=== PATIENT | female | born 1990 | race Caucasian/White ===

== ENCOUNTER 2017-04-05 07:45 | Emergency (ER) | payer OTHER ==
[~2017-04-05] VITALS: Ht 167.6 cm; Wt 57.1 kg
[~2017-04-05 07:45] MED LIST: BCTROWC TOP; BIOT1CHW PO; CEPH500C2 PO; CLZ750 PO; DIPH25CA65 PO; EPP3/2 IM; FLAXOIL2 PO; TRIA0.1C20 TOP; TRIA0.1O12 TOP
[2017-04-05 07:46] VITALS: TEMP 37.1; Ht 167.6 cm; Wt 57.1 kg
[2017-04-05] MEDS ORDERED: METO25TA3 PO (08:12)
[2017-04-05] MEDS ORDERED: TRIA0.5O (08:12)
[2017-04-05] MEDS ORDERED: ADAL40KI IM (08:12)
--- NOTE | 2017-04-05 08:25 | EMERGENCY ROOM VISIT NOTE ---
History First contact with patient: 07:55 Chief Complaint: CHEST PAIN Stated Complaint: CHEST PAIN History of Present Illness The patient is a 26 year old female who presents to the Emergency Room with complaints of epigastric and left-sided chest discomfort which began approximately 540 this morning. The patient states she awoke, and shortly after began noticing the chest pain. She states she is not doing anything specific, but getting ready for her diarrhea. When the pain began, she was making pancakes for breakfast. She describes the pain as constant, and states intermittently, she experiences sharpness. She does not report any significant pressure. 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 She describes the pain as bilateral over the lower rib cage, and states it seemed to radiate to the left side. She denies recent illness, nausea, vomiting, diarrhea, or constipation. She does have a history of palpitations, and takes Toprol for frequent PVCs. She did not note palpitations while experiencing the chest discomfort. She states this pain is different than any fluttering or palpitations she experienced when diagnosed with the frequent PVCs. The patient does not report any significant family history of cardiac events or disorders. The patient denies any personal history of cardiac events with the exception of frequent PVCs. Review of Systems A complete 10 point review of systems was reviewed with the patient with pertinent positives and negatives as per history of present illness. All else were negative. Past Medical/Surgical History Frequent PVCs Social History Smoking Status: Never Smoker Smokeless Tobacco Use: No Alcohol Use: occasionally Drug Use: none Marital Status: single Housing Status: lives with family Occupation Status: employed Current/Historical Medications Scheduled Adalimumab (Humira Pen), 40 MG IM every 2 weeks Control Pills ( Control Pills), 1 TAB PO DAILY Epinephrine (Epipen), 0.3 MG IM UD Flaxseed (Linseed) (Flax Oil), 1 CAP PO TID Metoprolol Succ (Toprol Xl) (Toprol-Xl), 25 MG PO DAILY Scheduled PRN Betamethasone Dip Aug 0.05% (Diprolene 0.05%), 1 DOSE PO DAILY PRN for PRN Miscellaneous Medications Triamcinolone Acetonide (Topic (Triamcinolone Acetonide) Physical Exam Vital Signs Date Time Temp Pulse Resp B/P (MAP) Pulse Ox O2 Delivery O2 Flow Rate FiO2 2/9/18 10:07 82 19 109/64 100 04/05/17 09:24 98 Room Air 04/05/17 09:24 98 Room Air 04/05/17 08:11 92 04/05/17 07:46 37.1 99 17 124/85 100 Room Air Physical Exam VITALS: Vitals are noted on the nurse's note and reviewed by myself. Vital signs stable. GENERAL: This is a 26-year-old white female, in no acute distress, nondiaphoretic, well-developed well-nourished. SKIN: The skin was without rashes, erythema, edema, or bruising. There is no tenting of the skin. Capillary reflex less than 2 seconds. HEAD: Normocephalic atraumatic. EARS: External auditory canals clear, tympanic membranes pearly hardin without erythema or effusion bilaterally. EYES: Pupils equal round and reactive to light and accommodation. Conjunctivae without injection, sclerae without icterus. Extraocular movements intact. NOSE: Patent, turbinates without inflammation or discharge. No sinus tenderness. MOUTH: Mucous membranes moist. Tonsils are not enlarged. Pharynx without erythema or exudate. Uvula midline. Airway patent. Tongue does not deviate. NECK: Supple without nuchal rigidity. No lymphadenopathy. No thyromegaly. Cervical spine is nontender. No JVD. HEART: Irregular rate and rhythm without murmurs gallops or rubs. LUNGS: Clear to auscultation bilaterally without wheezes, rales or rhonchi. No dullness to percussion. No retractions or accessory muscle use. ABDOMEN: Positive bowel sounds x 4. Normal tympanic percussion. Soft, nontender, without masses or organomegaly. Anderson sign negative. No guarding or rebound tenderness. MUSCULOSKELETAL: No muscle atrophy, erythema, or edema noted. Full range of motion without joint tenderness in all extremities. No tenderness to palpation. Normal gait. Strength 5/5 throughout. NEURO: Patient was alert and oriented to person place and time. Normal sensation to light and sharp touch. Deep tendon reflexes 2+ throughout. No focal neurological deficits. Medical Decision & Procedures ER Provider Diagnostic Interpretation: TWO VIEW CHEST CLINICAL HISTORY: Atypical chest pain. FINDINGS: PA and lateral chest radiographs are obtained. No prior studies are available for comparison at the time of dictation. The cardiomediastinal silhouette is unremarkable. The lungs and pleural spaces are clear. There is no pneumothorax. The bony thorax appears intact. IMPRESSION: No active disease in the chest. Laboratory Results 04/05/17 08:00 Red Blood Count 4.10, Mean Corpuscular Volume 88.0, Mean Corpuscular Hemoglobin 28.5, Mean Corpuscular Hemoglobin Concent 32.4, Mean Platelet Volume 10.0, Neutrophils (%) (Auto) 24.4, Lymphocytes (%) (Auto) 59.4, Monocytes (%) (Auto) 10.1, Eosinophils (%) (Auto) 5.4, Basophils (%) (Auto) 0.7, Neutrophils # (Auto ) 0.99, Lymphocytes # (Auto) 2.41, Monocytes # (Auto) 0.41, Eosinophils # (Auto ) 0.22, Basophils # (Auto) 0.03 04/05/17 08:00 Test 04/05/17 08:00 04/05/17 08:11 04/05/17 09:00 White Blood Count 4.06 K/uL (4.8-10.8) Red Blood Count 4.10 M/uL (4.2-5.4) Hemoglobin 11.7 g/dL (12.0-16.0) Hematocrit 36.1 % (37-47) Mean Corpuscular Volume 88.0 fL (80-100) Mean Corpuscular Hemoglobin 28.5 pg (25-34) Mean Corpuscular Hemoglobin Concent 32.4 g/dl (32-36) Platelet Count 305 K/uL (130-400) Mean Platelet Volume 10.0 fL (7.4-10.4) Neutrophils (%) (Auto) 24.4 % Lymphocytes (%) (Auto) 59.4 % Monocytes (%) (Auto) 10.1 % Eosinophils (%) (Auto) 5.4 % Basophils (%) (Auto) 0.7 % Neutrophils # (Auto) 0.99 K/uL (1.4-6.5) Lymphocytes # (Auto) 2.41 K/uL (1.2-3.4) Monocytes # (Auto) 0.41 K/uL (0.11-0.59) Eosinophils # (Auto) 0.22 K/uL (0-0.5) Basophils # (Auto) 0.03 K/uL (0-0.2) RDW Standard Deviation 45.6 fL (36.4-46.3) RDW Coefficient of Variation 14.0 % (11.5-14.5) Immature Granulocyte % (Auto) 0.0 % Immature Granulocyte # (Auto) 0.00 K/uL (0.00-0.02) Prothrombin Time 10.3 SECONDS (9.0-12.0) Prothromb Time International Ratio 1.0 (0.9-1.1) Activated Partial Thromboplast Time 22.2 SECONDS (21.0-31.0) Partial Thromboplastin Ratio 0.9 Anion Gap 8.0 mmol/L (3-11) Est Creatinine Clear Calc Drug Dose 79.8 ml/min Estimated GFR () 93.6 Estimated GFR (Non- 80.7 BUN/Creatinine Ratio 7.5 (10-20) Calcium Level 9.5 mg/dl (8.5-10.1) Magnesium Level 2.1 mg/dl (1.8-2.4) Total Bilirubin 0.5 mg/dl (0.2-1) Aspartate Amino Transf (AST/SGOT) 13 U/L (15-37) Alanine Aminotransferase (ALT/SGPT) 20 U/L (12-78) Alkaline Phosphatase 22 U/L (45-117) Creatine Kinase MB < 0.5 ng/ml (0.5-3.6) Troponin I < 0.015 ng/ml (0-0.045) Total Protein 7.6 gm/dl (6.4-8.2) Albumin 3.5 gm/dl (3.4-5.0) Globulin 4.1 gm/dl (2.5-4.0) Albumin/Globulin Ratio 0.9 (0.9-2) Thyroid Stimulating Hormone (TSH) 2.540 uIu/ml (0.300-4.500) Creatine Kinase MB Ratio (0-3.0) Urine Color YELLOW Urine Appearance CLEAR (CLEAR) Urine pH 7.0 (4.5-7.5) Urine Specific Virgin 1.005 (1.000-1.030) Urine Protein NEG (NEG) Urine Glucose (UA) NEG (NEG) Urine Ketones NEG (NEG) Urine Occult Blood NEG (NEG) Urine Nitrite NEG (NEG) Urine Bilirubin NEG (NEG) Urine Urobilinogen NEG (NEG) Urine Leukocyte Esterase NEG (NEG) Urine Test NEG (NEG) ECG Indication: chest pain Rate (beats per minute): 93 Rhythm: sinus rhythm Findings: PVC Comparison ECG Date: no prior available ED Course The patient was seen and evaluated as above. IV access obtained, labs drawn. Chest x-ray performed. I was notified of the abnormal CBC. I did reassess the patient, who is feeling better at this time. I discussed the case with Dr. Wu. Discharge instructions reviewed and the patient was discharged home in good condition. Medical Decision This is a 26-year-old female patient presents to the emergency department today complaining of left-sided chest discomfort which began this morning. She states while she's been in the emergency department, the pain has improved. It has improved since the initial onset of the pain. EKG did show PVC's, but the patient states this is normal. Cardiac workup here in the emergency department was overall negative, however she did have some mild leukopenia with neutropenia noted. The patient is on Humira injections, and I do suspect this is related to the injection, however she was encouraged to follow up with her primary care regarding ongoing workup. No obvious signs noted on examination or workup for the patient's chest pain. I do suspect a possible gastric cause, and did offer the patient a GI cocktail to see if this helped with the pain. The patient declines, and states the pain is manageable at this time. She has not recently been ill, and denies any fever. The patient feels well enough to go home, and does request discharge. She was given very strict return precautions due to the leukopenia and neutropenia, and was encouraged to stay out of work and away from sick contacts until further evaluation has been performed. Etiologies such as cardiac ischemia, aortic dissection, pulmonary embolism, pneumonia, pneumothorax, musculoskeletal, infections, gastrointestinal, as well as others were entertained. Impression Primary Impression: Non-cardiac chest pain Departure Information Dispostion Home / Self-Care Condition GOOD Referrals Esthela Suarez M.D. (PCP) Patient Instructions ED Chest Pain NonCardiac, My [facility] Additional Instructions You were seen in the emergency department today for chest pain. This is deemed to be noncardiac. I do suspect a possible gastrointestinal cause of your pain. I would follow-up with your gastrointestinal doctor. As discussed, your white blood cell count was slightly low, and your neutrophil count was low as well. I suspect this is related to the Humira, however to recommend follow-up with your primary care provider for recheck in 1-2 weeks. Return immediately to the emergency department for any fever, systemic body aches, abdominal pain, chest pain, difficulty breathing, or other concerning symptoms. Please follow up with your primary care provider on Saturday for reevaluation of her symptoms.
[2017-04-05 08:31] LABS: ALBUMIN 3.5 gm/dl (3.4-5.0); ALT/SGPT 20 U/L (12-78); BLOOD UREA NITROGEN 7 mg/dl (7-18); CALCIUM 9.5 mg/dl (8.5-10.1); CARBON DIOXIDE 25 mmol/L (21-32); CREATININE 0.98 mg/dl (0.60-1.20); GLUCOSE 75 mg/dl (70-99); HEMATOCRIT 36.1 % (37-47); HEMOGLOBIN 11.7 g/dL (12.0-16.0); MEAN CORPUSCULAR HEMOGLOBIN 28.5 pg (25-34); MEAN CORPUSCULAR HGB CONC 32.4 g/dl (32-36); PLATELET COUNT 305 K/uL (130-400); POTASSIUM 3.5 mmol/L (3.5-5.1); RED CELL DISTRIBUTION WIDTH SD 45.6 fL (36.4-46.3); SODIUM 138 mmol/L (136-145); WHITE BLOOD COUNT 4.06 K/uL (4.8-10.8)
[2017-04-05 08:33] LABS: PTT PATIENT 22.2 SECONDS (21.0-31.0)
[2017-04-05 08:42] LABS: ALKALINE PHOSPHATASE 22 U/L (45-117); AST/SGOT 13 U/L (15-37); CKMB < 0.5 ng/ml (0.5-3.6); TOTAL PROTEIN 7.6 gm/dl (6.4-8.2)
[2017-04-05 08:46] LABS: BASO % 0.7 %; BASO ABS # 0.03 K/uL (0-0.2); EOS % 5.4 %; EOS ABS # 0.22 K/uL (0-0.5); LYMPH % 59.4 %; LYMPH ABS # 2.41 K/uL (1.2-3.4); MONO % 10.1 %; MONO ABS # 0.41 K/uL (0.11-0.59); NEUT % 24.4 %; NEUT ABS # 0.99 K/uL (1.4-6.5)
--- NOTE | 2017-04-05 09:11 | DIAGNOSTIC IMAGING REPORT ---
TWO VIEW CHEST CLINICAL HISTORY: Atypical chest pain. FINDINGS: PA and lateral chest radiographs are obtained. No prior studies are available for comparison at the time of dictation. The cardiomediastinal silhouette is unremarkable. The lungs and pleural spaces are clear. There is no pneumothorax. The bony thorax appears intact. IMPRESSION: No active disease in the chest. Electronically signed by: Arun Cabrera M.D. 04/05/2017 9:10 AM Dictated Date/Time: 04/05/2017 9:09 AM
[2017-04-05 09:24] VITALS: O2SAT 98
[2017-04-05 10:07] VITALS: BP 109/64; PULSE 82; O2SAT 100
[2017-04-05] MEDS ORDERED: AUG0.05O4 PO (22:00)
[2017-04-05] MEDS ORDERED: BCPILLS PO (22:00)
== END 2017-04-05 10:35 | disposition home or self-care (01) ==
LOC: C.EDB 07:47
DX: R07.89 Other chest pain (principal)

== ENCOUNTER 2021-06-20 08:55 | Inpatient (IN) ==
[2021-06-20] MEDS ORDERED: OXYTOCIN 30 UNITS/500 ML BAG IV PRN ×2 (09:30→17:55)
[2021-06-20] MEDS ORDERED: PENICILLIN G POTASSIUM 6 MU in DEXTROSE 5% 250 ML IV STA (09:30)
[2021-06-20] MEDS ORDERED: LACTATED RINGER'S 1,000 ML IV PRN (09:30)
[2021-06-20 09:54] LABS: Mean Corpuscular Hemoglobin 32.4 pg (25-34); Mean Corpuscular Hgb Conc 33.3 g/dL (32-36); Mean Corpuscular Volume 97.3 fL (80-100); Mean Platelet Volume 9.8 fL (7.4-10.4); Platelet Count 326 K/uL (130-400); RDW Coefficient of Variation 14.4 % (11.5-14.5); RDW Standard Deviation 51.4 fL (36.4-46.3); Red Blood Count 3.39 M/uL (4.2-5.4)
--- NOTE | 2021-06-20 10:04 | History & Physical Report ---
Date of Service June 20, 2021 Assessment & Plan (1) : Plan: Admit in active labor GBS prophylaxis History of Present Illness Chief Complaint: onset of labor at term Primary Care Provider: Malcolm Ramírez DO 30 F P0000 at 39.5 weeks admitted in active labor. GBS is positive. Covid is pending. Allergies Allergy/AdvReac Type Severity Reaction Status Date / Time wheat Allergy Mild nausea Verified 06/20/21 01:08 mupirocin Allergy Unknown swelling Verified 06/20/21 01:08 banana Allergy Difficulty Verified 06/20/21 01:08 Swallowing cephalexin [From Keflex] Allergy Swelling Verified 06/20/21 01:08 of Lip/Tongue/Throat Home Medications Medication Instructions Recorded Confirmed Type adalimumab 40 mg/0.8 mL 1 dose SUBCUT DIRECTED 10/30/17 04/05/19 History subcutaneous syringe kit metoprolol succinate 25 mg 25 mg PO DAILY 10/30/17 06/19/21 History tablet,extended release 24 hr (Toprol XL) omeprazole 20 mg capsule,delayed 20 mg PO DAILY 04/05/19 06/19/21 History release vitamin B complex 1 tab PO DAILY 04/05/19 06/19/21 History vit 73-[id number]-[id number]-dha 1 PO DAILY 06/19/21 History Patient History Medical History Celiac disease Ulcerative colitis Surgical History History of colonoscopy 2019 multiple due to UC Family History Other Family history non-contributory Social History Smoking Status: Never smoker Second Hand Exposure: No; Hx Alcohol Use: No Hx Substance Use: No Preferred Language: Vietnamese Communication Ability: Effective Visual Impairment: No Limitations Hearing Ability: Normal 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 Beliefs That Will Affect Care: None marital status: Current Living Situation: Spouse current occupational status: employed 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 [employer] Feels Safe at Home: Yes Childhood Exposure to Second-Hand Smoke: No caffeine: Yes (1 cup of coffee a day) Dental Care, Regularly: Yes Seatbelt Use: always Sunscreen Use: Yes Assistive Devices: None 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 Review of Systems All systems reviewed & are unremarkable except as noted in HPI & below Physical Exam Constitutional: WD/WN, vitals as above Eyes: PERRL, conjunctivae normal, anicteric sclerae Respiratory: normal respiratory effort, lungs clear to auscultation Skin: no rashes, warm and dry Neurologic: patellar DTR's 2+ bilat, sensation intact Psychiatric: A+Ox3, euthymic affect Genitourinary: no vaginal lesions, no adnexal mass Manual OB Exam: + cervical dilation 6 cm, + cervical effacement 100% and + station -2 OB Exam Monitor Tracing: + external FHT monitor used, + external uterine monitor used, + category I and + normal FHT variability Results & Data ([facility]) Vital Signs (Past 12 Hours) Vital Signs Pulse BP 06/20/21 09:13 107 H 109/67 Code Status & VTE Plan VTE Prophylaxis Plan VTE Prophylaxis will be ordered: No Monitoring External Monitor Cat 1
[2021-06-20] MEDS ORDERED: PENICILLIN G POTASSIUM 3 MU in DEXTROSE 5% 100 ML IV PRN (12:30)
--- NOTE | 2021-06-20 15:08 | Labor Progress Brief Note ---
Date of Service June 20, 2021 Assessment & Plan Admission and Anticipated Discharge Date Admission Date: June 20, 2021 Physical Exam Genitourinary: Manual OB Exam: + cervical dilation 10 cm, + cervical effacement 100%, + station -1 and + amniotic fluid clear AROM of forebag with clear fluid. Will labor down till ctx closer together Results & Data ([facility]) Vital Signs (Past 12 Hours) Vital Signs Temp Pulse Resp BP 06/20/21 13:45 36.7 C 06/20/21 13:44 88 117/71 06/20/21 09:59 36.9 C 06/20/21 09:13 107 H 109/67
[2021-06-20] MEDS ORDERED: miSOPROStoL 200 MCG TAB ONE (17:02)
[2021-06-20] MEDS ORDERED: LIDOCAINE 1% LOCAL 20 ML VIAL ONE (17:09)
[2021-06-20] MEDS: miSOPROStoL 200 MCG TAB PR ONE ×2 (17:16→18:49)
--- NOTE | 2021-06-20 17:42 | Delivery Summary ---
Vaginal Delivery Summary Date of Service June 20, 2021 Vaginal Delivery Summary Delivery Note live female JAVAN over intact perineum with delayed cord clamping and Apgars 7/8 with nuchal cord x1 reduced on perineum. IV came out or patients arm right before delivery. Placenta was delivered spontaneously and intact with large amount of bleeding immediately post placenta. Uterine massage started along with Oxytocin 10 Units IM x2 given along with Methergine for uterine atony. Red rubber catheter used to drain bladder of 200 ml. joselito urine. IV access in left arm established. Small right vaginal wall tear repaired with 3/0 Vicryl and 1% Lidocaine plain. Perineum and rectum were intact. Cytotec 1000 mcg given rectally. EBL 600 ml. Final sponge, needle and instrument count are correct. Mom and baby stable.
[2021-06-20 17:46] LABS: Hematocrit (blood only) 32.1 % (37-47); Hemoglobin 10.9 g/dL (12.0-16.0)
[2021-06-20] MEDS ORDERED: OXYTOCIN 10 UNITS/ML 10ML VIAL IM ONE ×2 (17:55)
[2021-06-20] MEDS ORDERED: BENZOCAINE 20% AER SPR 82.5 GM CAN EXT PRN (17:55)
[2021-06-20] MEDS ORDERED: METHYLERGONOVINE MALEATE 0.2 MG/ML AMP IM ONE (17:55)
[2021-06-20] MEDS ORDERED: bisacodyL 10 MG SUPP PR PRN (17:55)
[2021-06-20] MEDS ORDERED: HYDROCORTISONE ACETATE 25 MG SUPP PR PRN (17:55)
[2021-06-20] MEDS ORDERED: IBUPROFEN 600 MG TAB PO PRN (17:55)
[2021-06-20] MEDS ORDERED: DIPHTHERIA/TETANUS/PERTUSSIS 0.5 ML SYR/VIAL IM ONE (17:55)
[2021-06-20] MEDS ORDERED: LACTATED RINGER'S 1,000 ML IV SCH (17:55)
[2021-06-20] MEDS ORDERED: CETIRIZINE HCL 10 MG TABLET PO PRN (18:30)
[2021-06-20] MEDS: DOCUSATE SODIUM 100 MG CAP PO SCH (20:39)
[2021-06-21] MEDS: ACETAMINOPHEN 325 MG TAB PO PRN ×2 (05:01→14:37)
--- NOTE | 2021-06-21 07:11 | Obstetrical Progress Note ---
Date of Service June 21, 2021 Assessment & Plan (1) Normal course: Continue routine pP care Anticipate d/c home tomorrow (2) Uterine atony, , current hospitalization: Doing well, H/H stable this am Subjective Ambulation: ambulating normally Voiding: no voiding problems Passing Gas:: Yes Diet Tolerance:: regular diet Lochia:: Moderate Feeding Type:: bottle feeding Current Pain Level(1-10): 2 Doing well, pain controlled-tailbone pain Physical Exam Constitutional WD/WN, vitals as above Respiratory normal respiratory effort, lungs clear to auscultation Cardiovascular RRR, no murmur, no edema Gastrointestinal (Abdomen) normal bowel sounds, soft, nontender, no hepatosplenomegaly Results & Data ([facility]) Vital Signs (Past 12 Hours) Vital Signs Temp Pulse Pulse Resp BP BP Pulse Ox 06/21/21 03:52 37.1 C 112 H 18 118/85 06/21/21 00:30 104 H 98 06/20/21 22:47 37.1 C 112 H 18 112/79 06/20/21 20:39 37.0 C 108 H 18 100/69 06/20/21 19:27 114 H 107/79 06/20/21 19:21 111 H 107/68 06/20/21 19:20 37.0 C 114 H 18 107/79
[2021-06-21 08:37] LABS: Hematocrit (blood only) 24.2 % (37-47); Mean Corpuscular Hemoglobin 31.7 pg (25-34); Mean Corpuscular Hgb Conc 33.1 g/dL (32-36); Mean Platelet Volume 9.9 fL (7.4-10.4); Platelet Count 284 K/uL (130-400); RDW Coefficient of Variation 14.6 % (11.5-14.5); RDW Standard Deviation 51.8 fL (36.4-46.3); Red Blood Count 2.52 M/uL (4.2-5.4); White Blood Count 16.46 K/uL (4.8-10.8)
[2021-06-21] MEDS: METOPROLOL SUCC 25MG EXT REL TAB PO SCH (08:53)
[2021-06-21] MEDS: PANTOprazole 40 MG TAB PO SCH (08:53)
[2021-06-21] MEDS: DOCUSATE SODIUM 100 MG CAP PO SCH ×2 (08:54→21:23)
[2021-06-21] MEDS: FERROUS SULFATE 325 MG TAB PO SCH (08:54)
[2021-06-21] MEDS: PRENATAL VITAMIN 1 TAB PO SCH (08:54)
[2021-06-21] MEDS: VITAMIN B COMPLEX TAB PO SCH (08:54)
[2021-06-21] MEDS ORDERED: NON-FORMULARY MEDICATION (Prenat.Vits,Cal,Min-Iron-Folic Tablet) PO SCH (09:00)
[2021-06-21] MEDS ORDERED: bisacodyL 5 MG TABEC PO SCH (20:00)
[2021-06-22] MEDS: ACETAMINOPHEN 325 MG TAB PO PRN ×3 (04:38→21:30)
[2021-06-22 06:50] LABS: Hematocrit (blood only) 20.3 % (37-47); Hemoglobin 6.9 g/dL (12.0-16.0)
[2021-06-22] MEDS ORDERED: SODIUM CHLORIDE 0.9% 250 ML IV PRN (06:51)
--- NOTE | 2021-06-22 09:00 | Obstetrical Progress Note ---
Date of Service June 22, 2021 Assessment & Plan (1) Normal course: pPPD #1 Pt doing well PPH Hemoglobin is 6.9 discussed transfusions with pt pt is agreeable to above consent obtained will transfuse with 1 unit Results & Data ([facility]) Vital Signs (Past 12 Hours) Vital Signs Temp Pulse Resp BP Pulse Ox 06/22/21 01:00 37.2 C 80 18 118/70 98
[2021-06-22] MEDS: FERROUS SULFATE 325 MG TAB PO SCH (09:33)
[2021-06-22] MEDS: DOCUSATE SODIUM 100 MG CAP PO SCH ×2 (09:34→21:00)
[2021-06-22] MEDS: PRENATAL VITAMIN 1 TAB PO SCH (09:34)
[2021-06-22] MEDS: PANTOprazole 40 MG TAB PO SCH (09:35)
[2021-06-22] MEDS: METOPROLOL SUCC 25MG EXT REL TAB PO SCH (09:35)
[2021-06-22] MEDS: VITAMIN B COMPLEX TAB PO SCH (09:35)
[2021-06-22 15:23] LABS: Hematocrit (blood only) 24.2 % (37-47); Hemoglobin 8.3 g/dL (12.0-16.0)
[2021-06-22 18:57] LABS: Hematocrit (blood only) 25.9 % (37-47); Hemoglobin 8.4 g/dL (12.0-16.0)
== END 2021-06-22 22:50 | disposition home or self-care (01) | DRG 807 ==
LOC: OPB 08:55 → 4S1 08:56 → 4E2 20:48

== ENCOUNTER 2024-11-25 18:52 | Observation (INO) ==
[2024-11-25] MEDS ORDERED: CALCIUM CARBONATE 500 MG CHEWABLE TAB PO PRN (19:17)
[2024-11-25] MEDS ORDERED: ACETAMINOPHEN 325 MG TAB PO PRN (19:17)
[2024-11-25] MEDS: LACTATED RINGER'S 1,000 ML IV PRN (19:46)
--- NOTE | 2024-11-25 19:49 | History & Physical Report ---
Date of Service November 25, 2024 Assessment & Plan (1) uterine contractions in third trimester, antepartum: Plan: 33-year-old -0-0-1 at 28 weeks and 6 days of gestation, presenting today with contractions, Vital signs stable afebrile, heart rate reassuring, Patient appears to be comfortable, does not feel all of the contractions, cervix fingertip and firm, contractions spaced out after she used the bathroom compared to when she first came, Plan to monitor, labs, IV hydration, we discussed Terbutaline injection, will hold it due to history of PVCs and on metoprolol, will reevaluate after IV hydration (2) PVC (premature ventricular contraction): (3) Celiac disease: (4) with 28 completed weeks gestation: History of Present Illness Primary Care Provider: Malcolm Ramírez DO Patient is a 33-year-old -0-0-1 at 28 weeks and 6 days of gestation who has been feeling contractions since 4:30 PM. She was working all day with no issues, works at [employer] department, discharged. Started to have contractions after her work, they have been coming every 3 to 8 minutes. No leakage of fluid or vaginal bleeding. She reports good movement. She also noted frequency of urination and had multiple bowel movements this afternoon. She has been eating and hydrating herself normally. denies fever, chills, abdominal pain between contractions. Denies history of recent intercourse. 1. She has a history of ulcerative colitis she is on IV and p.o. medication, has been stable during this . 2. She has history of PVCs, on metoprolol, her echo has been normal. 3. History of atony and hemorrhage, treated medically and blood transfusion. Allergies Allergy/AdvReac Type Severity Reaction Status Date / Time wheat Allergy Mild nausea Verified 11/25/24 19:08 mupirocin Allergy Unknown swelling Verified 11/25/24 19:08 banana Allergy Difficulty Verified 11/25/24 19:08 Swallowing cephalexin [From Keflex] Allergy Swelling Verified 11/25/24 19:08 of Lip/Tongue/Throat Home Medications Medication Instructions Recorded Confirmed Type metoprolol succinate 25 mg 25 mg PO DAILY 10/30/17 11/25/24 History tablet,extended release 24 hr (Toprol XL) cetirizine 10 mg tablet (Zyrtec) 10 mg PO DAILY PRN Allergy Symptoms 06/20/21 11/25/24 History prenat.vits,brittany,[id number]-cvgc-klftp 1 tab PO DAILY 06/20/21 11/25/24 History ferrous sulfate 325 mg (65 mg 325 mg PO DAILY@08 #30 tabs 06/22/21 11/25/24 Rx iron) tablet,delayed release infliximab-axxq 100 mg intravenous 330 mg IV 11/25/24 History solution mercaptopurine 50 mg tablet 50 mg PO DAILY 11/25/24 11/25/24 History Patient History Medical History PVC (premature ventricular contraction) controlled with metoprolol- sees carpentry supervisor Celiac disease Surgical History History of colonoscopy 2019 multiple due to UC Family History Other Family history non-contributory Social History Smoking Status: Never smoker Second Hand Exposure: No; Do You Dip or Chew Tobacco: No; Hx Alcohol Use: No Hx Substance Use: No Preferred Language: Italian Communication Ability: Effective Visual Impairment: No Limitations Hearing Ability: Normal Clinical Reimbursement Specialist Required: No Beliefs That Will Affect Care: None marital status: Current Living Situation: Spouse current occupational status: employed 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 Review of Systems as per Subjective / HPI Physical Exam Genitourinary: normal external appearance Manual OB Exam: + cervical dilation fingertip ( External os is fingertip, internal os is closed), + cervical effacement 20% and + station high ( posterior) OB Exam Monitor Tracing: + external uterine monitor used ( contractions q 3-5 min when she arrived, spaced after she used the BR) and + category I Results & Data Vital Signs (Past 12 Hours) Vital Signs Temp Pulse Resp BP 11/25/24 19:05 36.9 C 80 18 134/79
[2024-11-25 19:54] LABS: Hematocrit (blood only) 32.0 % (37.0-47.0); Hemoglobin 10.7 g/dl (12.0-16.0); Immature Granulocytes # (auto) 0.06 K/uL (0.01-0.20); Immature Granulocytes % (auto) 0.8 %; Mean Corpuscular Hemoglobin 35.0 pg (25.0-34.0); Mean Corpuscular Volume 104.6 fL (80.0-100.0); Platelet Count 244 K/uL (130-400); RDW Standard Deviation 51.1 fL (36.4-46.3); Red Blood Count 3.06 M/uL (4.20-5.40); White Blood Count 7.43 K/ul (4.8-10.8)
[2024-11-25 20:02] LABS: Appearance Urine Clear (Clear); Bacteria Urine Automated None Seen (None Seen); Glucose Urine UA Negative (Negative); RBC Urine Automated 0-2 /hpf (0-2)
[2024-11-25 20:12] LABS: Alanine Aminotransferase 13.0 U/L (7-52); Albumin Globulin Ratio 1.1 (0.9-2); Albumin Level 3.8 gm/dl (3.4-5.0); Alkaline Phosphatase 36.0 U/L (34-104); Anion Gap 7.0 (3-11); Bilirubin,Total 0.4 mg/dl (0.2-1.0); Blood Urea Nitrogen 6.0 mg/dl (6-23); Calcium 9.0 mg/dl (8.6-10.3); Carbon Dioxide 24.0 mmol/L (21-32); Chloride 105.0 mmol/L (98-107); Creatinine Clr Calc Pharmacy 133.8 ml/min; Globulin 3.4 gm/dl (2.5-4.0); Glucose 88.0 mg/dl (70-99(Fasting)); Potassium 3.3 mmol/L (3.5-5.1); Sodium 136.0 mmol/L (136-145); Total Protein 7.2 gm/dl (6.0-8.3)
[2024-11-25] MEDS: NIFEdipine EXTENDED REL 30 MG TABCR PO STA (20:58)
[2024-11-25] MEDS: NSS + 20MEQ KCL 20 MEQ/1,000 ML BAG IV SCH (20:58)
[2024-11-25] MEDS: NIFEdipine 10 MG CAP PO STA (22:05)
--- NOTE | 2024-11-25 22:17 | Obstetrical Progress Note ---
Date of Service November 25, 2024 Subjective Patient is reevaluated. Her potassium was low started on IV fluids with potassium chloride in it. Contractions started again, she has received Procardia 30 mg XL at 9 PM. She was still having contractions about half an hour ago when I wrote fast- acting Procardia 10 mg. After she used the BR, contractions spaced again. She feels about the same contractions as mild tightening some are painful as most are not. Denies leakage of fluid or vaginal bleeding. She reports good movements. Her urine is also suggesting UTI, patient does not have any symptoms other than frequency. She is allergic to Keflex, I rechecked her cervix she is still fingertip, softer than before still high, I performed bedside ultrasound, vertex, cervix appears to be closed and length is 32 mm. Plan to continue with IV fluids, await effect of Procardia, start empiric antibiotic for UTI Macrobid now, iron for anemia, Continue monitor closely, All questions were answered. Lab Results 11/25/24 11/25/24 Range/Units 19:35 19:39 WBC 7.43 (4.8-10.8) K/ul RBC 3.06 L (4.20-5.40) M/uL Hgb 10.7 L (12.0-16.0) g/dl Hct 32.0 L (37.0-47.0) % MCV 104.6 H (80.0-100.0) fL MCH 35.0 H (25.0-34.0) pg MCHC 33.4 (32.0-36.0) g/dL RDW Std Deviation 51.1 H (36.4-46.3) fL RDW Coeff of Elvis 13.5 (11.5-14.5) % Plt Count 244 (130-400) K/uL MPV 9.2 L (9.4-12.4) fL Immature Gran % (Auto) 0.8 % Neut % (Auto) 64.0 % Lymph % (Auto) 26.5 % [place] % (Auto) 7.3 % Eos % (Auto) 1.1 % Baso % (Auto) 0.3 % Neut # (Auto) 4.76 (1.40-6.50) K/uL Lymph # (Auto) 1.97 (1.20-3.40) K/uL [place] # (Auto) 0.54 (0.11-0.59) K/uL Eos # (Auto) 0.08 (0.00-0.50) K/uL Baso # (Auto) 0.02 (0.00-0.20) K/uL Immature Gran # (Auto) 0.06 (0.01-0.20) K/uL Sodium 136 (136-145) mmol/L Potassium 3.3 L (3.5-5.1) mmol/L Chloride 105 (98-107) mmol/L Carbon Dioxide 24 (21-32) mmol/L Anion Gap 7 (3-11) BUN 6 (6-23) mg/dl Creatinine 0.63 (0.6-1.2) mg/dl Est Cr Clr Drug Dosing 133.8 ml/min eGFR 121.55 BUN/Creatinine Ratio 9.5 L (10-20) Glucose 88 (70-99(Fasting)) mg/dl Calcium 9.0 (8.6-10.3) mg/dl Total Bilirubin 0.4 (0.2-1.0) mg/dl AST 15 (13-39) U/L ALT 13 (7-52) U/L Alkaline Phosphatase 36 (34-104) U/L Total Protein 7.2 (6.0-8.3) gm/dl Albumin 3.8 (3.4-5.0) gm/dl Globulin 3.4 (2.5-4.0) gm/dl Albumin/Globulin Ratio 1.1 (0.9-2) Urine Color Yellow Urine Appearance Clear (Clear) Urine pH 7.5 (4.5-7.5) Ur Specific [place] 1.005 (1.000-1.030) Urine Protein Negative (Negative) Urine Glucose (UA) Negative (Negative) Urine Ketones Negative (Negative) Urine Blood Negative (Negative) Urine Nitrite Negative (Negative) Urine Bilirubin Negative (Negative) Urine Urobilinogen Negative (Negative) Ur Leukocyte Esterase 3+ H (Negative) Urine WBC (Auto) 11-20 H (0-5) /hpf Urine RBC (Auto) 0-2 (0-2) /hpf U Hyaline Cast (Auto) 6-10 H (0-2) /lpf U Epithel Cells (Auto) 3-5 H (0-2) /hpf Urine Bacteria (Auto) None Seen (None Seen) Hyaline Casts Present A (None Presnt) /lpf Results & Data Vital Signs (Past 12 Hours) Vital Signs Temp Pulse Resp BP 11/25/24 19:05 36.9 C 80 18 134/79
[2024-11-25] MEDS: BETAMETH SOD PHOS/ACETATE IA 6 MG/ML IM STA (22:19)
[2024-11-25] MEDS: PRENATAL VITAMIN 1 TAB PO ONE (22:39)
[2024-11-25] MEDS: FERROUS SULFATE 325 MG TAB PO SCH (22:39)
[2024-11-25] MEDS: NITROFURANTOIN MONOHYDRATE 100 MG CAP PO SCH (22:39)
[2024-11-25] MEDS: LACTATED RINGER'S 1,000 ML IV SCH (23:08)
[2024-11-25] MEDS: TERBUTALINE SULFATE 1 MG/ML VIAL SQ PRN (23:08)
[2024-11-26] MEDS ORDERED: NIFEdipine EXTENDED REL 30 MG TABCR PO SCH
[2024-11-26] MEDS ORDERED: OR MISCELLANEOUS MED ONE (00:11)
[2024-11-26 01:48] VITALS: RESP 16; TEMP 98.2
[2024-11-26 06:29] VITALS: BP 112/60; PULSE 92
[2024-11-26] MEDS: MACROBID 100MG HOME PACK PO ONE (06:57)
--- NOTE | 2024-11-26 07:06 | Obstetrical Progress Note ---
Date of Service November 26, 2024 Assessment & Plan Admission and Anticipated Discharge Date Admission Date: November 26, 2024 Subjective patient feels well, no complaints. She will slept and has not waking up with contractions. Since she woke up she felt to mild tightening, not painful. Cervix is rechecked by myself and unchanged, heart rate had been category 1, [place] no contractions overnight, with 2 within an hour mild and irregular discussed the findings and recommended continue with Procardia 30 mg XL twice a day with Macrobid twice a day until urine culture result is back, She will come back for second dose of betamethasone tonight, Discussed when to call, All questions were answered. Results & Data Vital Signs (Past 12 Hours) Vital Signs Temp Pulse Resp BP 11/26/24 06:28 36.8 C 92 H 16 112/60 11/26/24 01:43 36.8 C 96 H 16 103/59 L 11/25/24 23:03 90 95/59 L 11/25/24 19:05 36.9 C 80 18 134/79
[2024-11-26] MEDS: NIFEdipine EXTENDED REL 30 MG TABCR PO STA (07:16)
[2024-11-26] MEDS: NITROFURANTOIN MONOHYDRATE 100 MG CAP PO STA (07:17)
[2024-11-26] MEDS ORDERED: PRENATAL VITAMIN 1 TAB PO SCH (09:00)
== END 2024-11-26 07:20 | disposition home health service (06) ==
LOC: 4S1 18:52 → OPB 18:52 → 4S1 18:53